=== PATIENT | female | born 1950 | race Caucasian/White ===

== ENCOUNTER → 2016-11-27 | Outpatient (CLI) | payer OTHER ==
[~2016-11-27] MED LIST: ALPR-138 PO; COUM2TAB PO; PRAV80 PO; SYNT25TA PO; VAGI10TA VA
[2016-11-27 10:55] LABS: INTERNATIONAL NORMALIZED RATIO 2.7 RATIO; PROTHROMBIN TIME - PATIENT 31.1 SEC (9.8-11.6)
== END ==
LOC: CLAB 10:25
PROVIDERS: ATTEND Family Medicine
DX: I67.9 Cerebrovascular disease, unspecified (principal)
CPT/HCPCS: 36415; 85610

== ENCOUNTER → 2016-12-26 | Outpatient (CLI) | payer OTHER ==
[2016-12-26 09:43] LABS: INTERNATIONAL NORMALIZED RATIO 2.8 RATIO; PROTHROMBIN TIME - PATIENT 32.3 SEC (9.8-11.6)
[2016-12-26 10:07] LABS: HDL CHOLESTEROL 82.2 MG/DL (40.0-60.0); INDIRECT BILIRUBIN 0.5 MG/DL (0.0-0.8); TOTAL BILIRUBIN ADULT 0.7 MG/DL (0.2-1.0)
== END ==
LOC: CLAB 09:14
PROVIDERS: ATTEND Family Medicine
DX: E78.2 Mixed hyperlipidemia (principal); I67.9 Cerebrovascular disease, unspecified; Z79.01 Long term (current) use of anticoagulants
CPT/HCPCS: 36415; 80061; 80076; 85610

== ENCOUNTER → 2017-01-30 | Outpatient (CLI) | payer OTHER ==
[2017-01-30 12:07] LABS: INTERNATIONAL NORMALIZED RATIO 1.8 RATIO; PROTHROMBIN TIME - PATIENT 20.6 SEC (9.8-11.6)
== END ==
LOC: CLAB 11:28
PROVIDERS: ATTEND Family Medicine
DX: I67.9 Cerebrovascular disease, unspecified (principal); Z79.01 Long term (current) use of anticoagulants
CPT/HCPCS: 36415; 85610

== ENCOUNTER → 2017-02-28 | Outpatient (CLI) | payer OTHER ==
[2017-02-28 09:05] LABS: AUTOMATED NEUTROPHIL # 2.1 TH/MM3 (1.8-7.7); BASOPHIL # 0.1 TH/MM3 (0-0.2); BASOPHIL % 1.3 % (0.0-2.0); EOSINOPHIL # 0.3 TH/MM3 (0-0.4); EOSINOPHIL % 6.7 % (0.0-4.0); HEMATOCRIT 40.9 % (35.0-46.0); HEMO FLAGS DIFF FINAL; LYMPH % 28.1 % (9.0-44.0); LYMPHOCYTE # 1.1 TH/MM3 (1.0-4.8); MEAN CELL VOLUME 89.1 FL (80.0-100.0); MEAN CORPUSCULAR HEMOGLOBIN 30.2 PG (27.0-34.0); MEAN CORPUSCULAR HGB CONC 33.9 % (32.0-36.0); MONO % 11.3 % (0.0-8.0); NEUT % 52.6 % (16.0-70.0); PLATELET COUNT 251 TH/MM3 (150-450); RED BLOOD COUNT 4.59 MIL/MM3 (4.00-5.30); RED CELL DISTRIBUTION WIDTH 12.8 % (11.6-17.2); WHITE BLOOD COUNT 4.1 TH/MM3 (4.0-11.0)
[2017-02-28 09:13] LABS: INTERNATIONAL NORMALIZED RATIO 2.7 RATIO; PROTHROMBIN TIME - PATIENT 31.1 SEC (9.8-11.6)
[2017-02-28 10:06] LABS: ALKALINE PHOSPHATASE 79 U/L (45-117); ALT (GPT) 26 U/L (10-53); ANION GAP 7 MEQ/L (5-15); AST (GOT) 22 U/L (15-37); BICARBONATE 29.2 MEQ/L (21.0-32.0); BLOOD UREA NITROGEN 13 MG/DL (7-18); CHLORIDE 105 MEQ/L (98-107); GLOMERULAR FILTRATION RATE 67 ML/MIN (>89); GLUCOSE,FASTING 89 MG/DL (74-99); HDL CHOLESTEROL 74.1 MG/DL (40.0-60.0); LDL CHOLESTEROL 81 MG/DL (0-99); POTASSIUM 4.2 MEQ/L (3.5-5.1); SODIUM (NA) 141 MEQ/L (136-145); TOTAL BILIRUBIN ADULT 0.6 MG/DL (0.2-1.0)
== END ==
LOC: CLAB 08:32
PROVIDERS: ATTEND Family Medicine
DX: E78.2 Mixed hyperlipidemia (principal); I67.9 Cerebrovascular disease, unspecified; Q21.1 Atrial septal defect; E03.8 Other specified hypothyroidism; Z79.01 Long term (current) use of anticoagulants
CPT/HCPCS: 36415; 80053; 80061; 84443; 85025; 85610

== ENCOUNTER → 2017-04-11 | Outpatient (CLI) | payer OTHER, MEDICARE ==
[2017-04-11 11:50] LABS: INTERNATIONAL NORMALIZED RATIO 2.9 RATIO
== END ==
LOC: CLAB 11:25
PROVIDERS: ATTEND Family Medicine
DX: I67.9 Cerebrovascular disease, unspecified (principal); Z79.01 Long term (current) use of anticoagulants
CPT/HCPCS: 36415; 85610

== ENCOUNTER → 2017-05-26 | Outpatient (CLI) | payer MEDICARE ==
[2017-05-26 11:05] LABS: INTERNATIONAL NORMALIZED RATIO 2.2 RATIO; PROTHROMBIN TIME - PATIENT 24.6 SEC (9.8-11.6)
== END ==
LOC: CLAB 10:21
PROVIDERS: ATTEND Family Medicine
DX: I67.9 Cerebrovascular disease, unspecified (principal); Z79.01 Long term (current) use of anticoagulants
CPT/HCPCS: 36415; 85610

== ENCOUNTER → 2017-07-08 | Outpatient (CLI) | payer MEDICARE ==
[2017-07-08 11:38] LABS: INTERNATIONAL NORMALIZED RATIO 2.9 RATIO
== END ==
LOC: CLAB 11:08
PROVIDERS: ATTEND Family Medicine
DX: I67.9 Cerebrovascular disease, unspecified (principal); Z79.01 Long term (current) use of anticoagulants
CPT/HCPCS: 36415; 85610

== ENCOUNTER → 2017-08-21 | Outpatient (CLI) | payer MEDICARE ==
[2017-08-21 11:37] LABS: INTERNATIONAL NORMALIZED RATIO 2.7 RATIO; PROTHROMBIN TIME - PATIENT 31.2 SEC (9.8-11.6)
== END ==
LOC: CLAB 10:45
PROVIDERS: ATTEND Family Medicine
DX: I67.9 Cerebrovascular disease, unspecified (principal); Z79.01 Long term (current) use of anticoagulants
CPT/HCPCS: 36415; 85610

== ENCOUNTER → 2017-09-12 | Outpatient (CLI) | payer MEDICARE ==
[2017-09-12 09:40] LABS: AUTOMATED NEUTROPHIL # 2.1 TH/MM3 (1.8-7.7); BASOPHIL % 0.9 % (0.0-2.0); EOSINOPHIL # 0.2 TH/MM3 (0-0.4); EOSINOPHIL % 3.7 % (0.0-4.0); HEMATOCRIT 41.8 % (35.0-46.0); HEMO FLAGS DIFF FINAL; LYMPH % 32.4 % (9.0-44.0); LYMPHOCYTE # 1.3 TH/MM3 (1.0-4.8); MEAN CELL VOLUME 90.7 FL (80.0-100.0); MEAN CORPUSCULAR HGB CONC 34.2 % (32.0-36.0); MONO % 12.1 % (0.0-8.0); NEUT % 50.9 % (16.0-70.0); PLATELET COUNT 269 TH/MM3 (150-450); RED BLOOD COUNT 4.61 MIL/MM3 (4.00-5.30); RED CELL DISTRIBUTION WIDTH 12.4 % (11.6-17.2); WHITE BLOOD COUNT 4.1 TH/MM3 (4.0-11.0)
[2017-09-12 10:10] LABS: ALT (GPT) 30 U/L (10-53); ANION GAP 6 MEQ/L (5-15); AST (GOT) 28 U/L (15-37); BICARBONATE 28.4 MEQ/L (21.0-32.0); BLOOD UREA NITROGEN 12 MG/DL (7-18); CHLORIDE 103 MEQ/L (98-107); GLOMERULAR FILTRATION RATE 74 ML/MIN (>89); GLUCOSE,FASTING 91 MG/DL (74-99); POTASSIUM 4.3 MEQ/L (3.5-5.1); SODIUM (NA) 137 MEQ/L (136-145)
[2017-09-12 10:19] LABS: ALKALINE PHOSPHATASE 79 U/L (45-117); HDL CHOLESTEROL 72.3 MG/DL (40.0-60.0); LDL CHOLESTEROL 79 MG/DL (0-99); TOTAL BILIRUBIN ADULT 0.6 MG/DL (0.2-1.0)
== END ==
LOC: CLAB 09:08
PROVIDERS: ATTEND Nurse Practitioner Family
DX: E03.8 Other specified hypothyroidism (principal); I67.9 Cerebrovascular disease, unspecified; F41.1 Generalized anxiety disorder; E78.2 Mixed hyperlipidemia
CPT/HCPCS: 36415; 80053; 80061; 84443; 85025

== ENCOUNTER → 2017-10-14 | Outpatient (CLI) | payer MEDICARE ==
[2017-10-14 11:49] LABS: INTERNATIONAL NORMALIZED RATIO 3.2 RATIO; PROTHROMBIN TIME - PATIENT 32.1 SEC (9.8-11.6)
== END ==
LOC: CLAB 11:17
PROVIDERS: ATTEND Family Medicine
DX: I67.9 Cerebrovascular disease, unspecified (principal); Z79.01 Long term (current) use of anticoagulants
CPT/HCPCS: 36415; 85610

== ENCOUNTER → 2017-11-18 | Outpatient (CLI) | payer MEDICARE ==
[2017-11-18 11:26] LABS: INTERNATIONAL NORMALIZED RATIO 2.2 RATIO; PROTHROMBIN TIME - PATIENT 22.7 SEC (9.8-11.6)
== END ==
LOC: CLAB 10:57
PROVIDERS: ATTEND Family Medicine
DX: I67.9 Cerebrovascular disease, unspecified (principal); Z79.01 Long term (current) use of anticoagulants
CPT/HCPCS: 36415; 85610

== ENCOUNTER → 2018-01-05 | Outpatient (CLI) | payer MEDICARE ==
[2018-01-05 13:05] LABS: INTERNATIONAL NORMALIZED RATIO 2.3 RATIO; PROTHROMBIN TIME - PATIENT 23.3 SEC (9.8-11.6)
== END ==
LOC: CLAB 12:34
PROVIDERS: ATTEND Family Medicine
DX: I63.9 Cerebral infarction, unspecified (principal)
CPT/HCPCS: 36415; 85610

== ENCOUNTER 2018-01-23 19:31 | Emergency (ER) | payer MEDICARE ==
[~2018-01-23] VITALS: Ht 165.1 cm; Wt 78.9 kg
[2018-01-23] MEDS ORDERED: IOHEXOL 350 MG/ML 10 ML VIAL (for RAD DIAG) IVCONTRAST ONE (19:32)
[2018-01-23 19:49] VITALS: BP 173/100; PULSE 102; RESP 17; TEMP 97.7; O2SAT 94
[2018-01-23] MEDS ORDERED: ALPR.25 PO (21:36)
[2018-01-23] MEDS ORDERED: SYNT25TA PO (21:36)
[2018-01-23] MEDS ORDERED: MULT1TAB46 PO (21:36)
[2018-01-23] MEDS ORDERED: VITATAB56 PO (21:36)
[2018-01-23] MEDS ORDERED: CARD180C5 PO (21:36)
[2018-01-23] MEDS ORDERED: VITATAB11 (21:36)
[2018-01-23] MEDS ORDERED: COUM2TAB PO (21:36)
[2018-01-23] MEDS ORDERED: ESTR42.5V VAGINAL (21:36)
[2018-01-23] MEDS ORDERED: CALC1TAB87 PO (21:36)
[2018-01-23] MEDS ORDERED: MAGN100T2 PO (21:36)
[2018-01-23] MEDS ORDERED: ATOR40TA16 PO (21:36)
[2018-01-23] MEDS ORDERED: VITA250T3 PO (21:36)
[2018-01-23 22:29] LABS: AUTOMATED NEUTROPHIL # 7.2 TH/MM3 (1.8-7.7); BASOPHIL # 0.1 TH/MM3 (0-0.2); BASOPHIL % 0.9 % (0.0-2.0); EOSINOPHIL # 0.2 TH/MM3 (0-0.4); EOSINOPHIL % 1.8 % (0.0-4.0); HEMATOCRIT 44.3 % (35.0-46.0); HEMOGLOBIN 14.4 GM/DL (11.6-15.3); LYMPH % 15.5 % (9.0-44.0); LYMPHOCYTE # 1.5 TH/MM3 (1.0-4.8); MEAN CELL VOLUME 88.5 FL (80.0-100.0); MEAN CORPUSCULAR HEMOGLOBIN 28.9 PG (27.0-34.0); MEAN CORPUSCULAR HGB CONC 32.6 % (32.0-36.0); MEAN PLATELET VOLUME 7.4 FL (7.0-11.0); MONO % 9.6 % (0.0-8.0); MONOCYTE # 0.9 TH/MM3 (0-0.9); NEUT % 72.2 % (16.0-70.0); PLATELET COUNT 288 TH/MM3 (150-450); RED BLOOD COUNT 5.01 MIL/MM3 (4.00-5.30); RED CELL DISTRIBUTION WIDTH 12.2 % (11.6-17.2); WHITE BLOOD COUNT 9.9 TH/MM3 (4.0-11.0)
[2018-01-23 22:41] LABS: CALCIUM 8.8 MG/DL (8.5-10.1)
[2018-01-23 22:45] LABS: CREATININE 0.92 MG/DL (0.50-1.00)
--- NOTE | 2018-01-23 22:48 | RADRPT ---
EXAM DATE/TIME: 01/23/2018 22:02 [facility] COMPARISON: No previous studies available for comparison. INDICATIONS : Cough. MEDICAL HISTORY : None. SURGICAL HISTORY : None. ENCOUNTER: Initial ACUITY: 1 day PAIN SCORE: 0/10 LOCATION: Bilateral chest FINDINGS: A single view of the chest demonstrates the lungs to be symmetrically aerated without evidence of mas s, infiltrate or effusion. The cardiomediastinal contours are unremarkable except tortuous aorta. O sseous structures are intact. CONCLUSION: 1. No active disease. Tortuous aorta. Micheal Michael MD on January 23, 2018 at 22:45 Board Certified Radiologist. This report was verified electronically.
[2018-01-23 22:53] LABS: INTERNATIONAL NORMALIZED RATIO 2.9 RATIO; PROTHROMBIN TIME - PATIENT 29.1 SEC (9.8-11.6)
--- NOTE | 2018-01-24 00:11 | RADRPT ---
EXAM DATE/TIME: 01/23/2018 23:29 [facility] COMPARISON: No previous studies available for comparison. INDICATIONS : Sore Throat. IV CONTRAST: 70 cc Omnipaque 350 (iohexol) IV RADIATION DOSE: 13.20 CTDIvol (mGy) MEDICAL HISTORY : Cerebrovascular disease. Hypertension. SURGICAL HISTORY : None. ENCOUNTER: Initial ACUITY: 1 day PAIN SCALE: 10/10 LOCATION: throat TECHNIQUE: Volumetric scanning of the neck was performed. Using automated exposure control and adjustment of th e mA and/or kV according to patient size, radiation dose was kept as low as reasonably achievable to obtain optimal diagnostic quality images. DICOM format image data is available electronically for r eview and comparison. FINDINGS: NASOPHARYNX: The nasopharyngeal airway has a normal configuration. No mucosal thickening or mass is seen. OROPHARYNX: The intrinsic muscles of the tongue are symmetric. The tonsillar pillars are intact. The prevertebr al soft tissues are not thickened. LARYNX: The epiglottis is intact and normal in size. The beronica-epiglottic folds are diffusely enlarged and maxim atous in appearance. PARAPHARYNGEAL: The parapharyngeal space is intact. SALIVARY GLANDS: The parotid and submandibular glands are intact. LYMPH NODES: No enlarged or necrotic-appearing nodes. THYROID: Homogeneous enhancement without evidence of nodule. BONES: Unremarkable. CONCLUSION: 1. The epiglottis is unremarkable in appearance. The shawn-epiglottic folds are abnormal in appearance with enlargement and edema. 2. The airway is not compromised . 3. No focal mass or adenopathy. Robert Angel MD on January 24, 2018 at 0:00 Board Certified Radiologist. This report was verified electronically.
[2018-01-24 00:22] VITALS: BP 149/85; PULSE 97; RESP 18; TEMP 98.6; O2SAT 95
[2018-01-24] MEDS ORDERED: PERC5TAB12 PO (00:27)
[2018-01-24] MEDS ORDERED: ZOFR4TAB3 SL (00:27)
[2018-01-24] MEDS ORDERED: ONDANSETRON HCL 4 MG/2 ML VIAL IV PUSH ONE (00:30)
[2018-01-24] MEDS ORDERED: oxyCODONE/ACETAMINOPHEN 5 MG/325 MG TAB PO ONE (00:30)
--- NOTE | 2018-01-24 00:34 | PD ---
HPI Chief Complaint: ENT Complaint Time Seen by Provider: 21:58 Travel History International Travel<30 days: No Contact w/Intl Traveler<30days: No Traveled to known affect area: No History of Present Illness HPI 67-year-old female presents to the emergency department for complaint of severe throat pain with swallowing no fever no chills no nausea no vomiting no shortness of breath no wheezing. Patient states pain is such that it is interfering with her ability to swallow. Patient is on Coumadin therapy for history of history of CVA felt to be secondary to ventricular septal defect which had is undergone repair and loop recorder that showed brief episodes of atrial flutter and atrial fibrillation. Patient has had no chest pain no palpitations no shortness of breath no wheezing no near-syncope or syncope. Patient rates pain 10/10 in intensity. Patient cannot take nonsteroidal anti- inflammatory medications due to Coumadin therapy. Patient keeps her INR therapeutic range between 2 and 3. PFSH Past Medical History Narrative Medical Anxiety hypertension dyslipidemia CVA VSD status post repair atrial fib atrial flutter; occasional alcohol; nursing notes Anxiety: Yes Heart Rhythm Problems: Yes (ATRIAL SEPTAL DEFECT) Cancer: No Cardiovascular Problems: No High Cholesterol: Yes Cerebrovascular Accident: Yes (DEC 2007) Diminished Hearing: No Endocrine: No Genitourinary: Yes (KIDNEY PAIN) Hepatitis: Yes (1971) Hypertension: Yes Immune Disorder: No Musculoskeletal: No Neurologic: No Psychiatric: No Reproductive: No Respiratory: No Immunizations Current: Yes Thyroid Disease: Yes (HYPOTHYROID) Tetanus Vaccination: < 5 Years Influenza Vaccination: Yes ?: Not Menopausal: Yes Past Surgical History Abdominal Surgery: No AICD: No Arteriovenous Shunt: No Cardiac Surgery: Yes (ATRIAL SEPTAL DEFECT REPAIR) Ear Surgery: No Endocrine Surgery: No Eye Surgery: No Genitourinary Surgery: No Gynecologic Surgery: No Insulin Pump: No Joint Replacement: No Oral Surgery: No Pacemaker: No Thoracic Surgery: No Social History Alcohol Use: Yes (RED WINE 1 TO 2 PER WEEK, LAST 12/04/07) Tobacco Use: Yes Substance Use: No Allergies-Medications (Allergen,Severity, Reaction): Coded Allergies: No Known Allergies (Verified Adverse Reaction, Unknown, 01/23/18) Reported Meds & Prescriptions Reported Meds & Active Scripts Active Reported Cardizem CD 24 HR (Diltiazem CD 24 HR) 180 Mg Caper 180 Mg PO DAILY Estrace Vaginal (Estradiol) 0.01% Cream 1 Appl VAGINAL 2X WEEKLY Magnesium Citrate 100 Mg Tab 250 Mg PO DAILY PRN Vitamin B Complex (B-Complex Vitamins) 1 Tab DAILY Calcium 600 with Vitamin D (Calcium Carbonate-Cholecalciferol) 600-400 mg-Unit Tab 1 Tab PO DAILY Vitamin D-400 (Cholecalciferol) 400 Unit Tab 400 Units PO DAILY Vitamin C (Ascorbic Acid) 250 Mg Tab 500 Mg PO BID Multi Vitamin Daily (Multiple Vitamin) 1 Tab Tab 1 Tab PO DAILY Xanax (Alprazolam) 0.25 Mg Tab 0.25 Mg PO HS PRN Atorvastatin (Atorvastatin Calcium) 40 Mg Tab 40 Mg PO HS Synthroid (Levothyroxine Sodium) 25 Mcg Tab 25 Mcg PO DAILY Coumadin (Warfarin) 2 Mg Tab 2 Mg PO DAILY Review of Systems Except as stated in HPI: all other systems reviewed are Neg Physical Exam Narrative GENERAL: Well-developed well-nourished female no acute distress no respiratory distress no stridor or hoarseness. SKIN: Warm and dry. HEAD: Normocephalic. EYES: No scleral icterus. No injection or drainage. ENT: Mucous membranes moist posterior pharynx without erythema edema exudative change and is patent. NECK: Supple, trachea midline. No JVD or lymphadenopathy. Supple no palpable mass no lymphadenopathy. Trachea midline. CARDIOVASCULAR: Regular rate and rhythm without murmurs, gallops, or rubs. RESPIRATORY: Breath sounds equal bilaterally. No accessory muscle use. GASTROINTESTINAL: Abdomen soft, non-tender, nondistended. MUSCULOSKELETAL: No cyanosis, or edema. BACK: Nontender without obvious deformity. No CVA tenderness. Data Data Last Documented VS Vital Signs Date Time Temp Pulse Resp B/P (MAP) Pulse Ox O2 Delivery O2 Flow Rate FiO2 01/24/18 00:22 98.6 97 18 149/85 (106) 95 Orders Orders Group A Rapid Strep Screen (01/23/18 21:58) Complete Blood Count With Diff (01/23/18 21:58) Prothrombin Time / Inr (Pt) (01/23/18 21:58) Basic Metabolic Panel (Bmp) (01/23/18 21:58) Chest, Single Ap (01/23/18 ) Lactic Acid (01/23/18 21:58) Strep Culture (Group A) (01/23/18 22:20) Ct Soft Tiss Neck W Iv Cont (01/23/18 ) Iohexol 350 Inj (Omnipaque 350 Inj) (01/23/18 19:32) Ondansetron Inj (Zofran Inj) (01/24/18 00:30) Oxycodone-Acetamin 5-325 Mg (Percocet (01/24/18 00:30) Labs Laboratory Tests Test 01/23/18 22:20 White Blood Count 9.9 TH/MM3 Red Blood Count 5.01 MIL/MM3 Hemoglobin 14.4 GM/DL Hematocrit 44.3 % Mean Corpuscular Volume 88.5 FL Mean Corpuscular Hemoglobin 28.9 PG Mean Corpuscular Hemoglobin Concent 32.6 % Red Cell Distribution Width 12.2 % Platelet Count 288 TH/MM3 Mean Platelet Volume 7.4 FL Neutrophils (%) (Auto) 72.2 % Lymphocytes (%) (Auto) 15.5 % Monocytes (%) (Auto) 9.6 % Eosinophils (%) (Auto) 1.8 % Basophils (%) (Auto) 0.9 % Neutrophils # (Auto) 7.2 TH/MM3 Lymphocytes # (Auto) 1.5 TH/MM3 Monocytes # (Auto) 0.9 TH/MM3 Eosinophils # (Auto) 0.2 TH/MM3 Basophils # (Auto) 0.1 TH/MM3 CBC Comment DIFF FINAL Differential Comment Prothrombin Time 29.1 SEC Prothromb Time International Ratio 2.9 RATIO Blood Urea Nitrogen 16 MG/DL Creatinine 0.92 MG/DL Random Glucose 104 MG/DL Calcium Level 8.8 MG/DL Sodium Level 138 MEQ/L Potassium Level 4.5 MEQ/L Chloride Level 104 MEQ/L Carbon Dioxide Level 27.0 MEQ/L Anion Gap 7 MEQ/L Estimat Glomerular Filtration Rate 61 ML/MIN Lactic Acid Level 1.0 mmol/L [facility] Medical Decision Making Medical Screen Exam Complete: Yes Emergency Medical Condition: Yes Medical Record Reviewed: Yes Differential Diagnosis Laryngitis viral syndrome strep pharyngitis also to consider retropharyngeal abscess unlikely epiglottitis Narrative Course IV access obtained specimens collections of resulting CBC with automated differential within normal limits lactic acid 1.1, not elevated INR is therapeutic at 2.9 rapid strep test is negative; CT soft tissue neck ordered with IV contrast Imaging study per reading radiologist reveals some beronica-epiglottic fold edema -- airways patent. Patient's case and imaging studies discussed with on-call ENT concurs no intervention necessary other than symptomatic. Patient complains of severe 10/10 pain is aware that imaging study is consistent with inflammatory response and symptoms may get slightly worse but symptomatic intervention such as coolness vaporizer is staying well-hydrated septic spray lozenges and once or gargles should be sufficient however will provide prescription for a few tablets of Percocet 5/325 and as needed Zofran for medication induced nausea vomiting. Diagnosis Primary Impression: Laryngitis acute, spasmodic Referrals: Primary Care Physician call for appointment Patient Instructions: General Instructions Additional Instructions: Increase fluid hydration May use warm salt water gargles and lozenges and Chloraseptic spray for symptomatic relief For more severe pain may take 1/2-1 tablet of Percocet as needed for pain greater than 6/10 intensity Use coolness vaporizer at bedside May take Zofran as prescribed as needed for nausea and/or vomiting Continue current medications as chronically prescribed Follow-up with your primary care provider call office on Friday Med/Other Pt SpecificInfo: Prescription(s) given Scripts Oxycodone-Acetaminophen (Percocet) 5-325 mg Tab 1 TAB PO Q6H Y for PAIN, #6 TAB 0 Refills Prov: Ree Watts MD 01/24/18 Ondansetron Odt (Zofran Odt) 4 Mg Tab 4 MG SL Q6HR Y for Nausea/Vomiting, #10 TAB 0 Refills Prov: Ree Watts MD 01/24/18 Disposition: 01 DISCHARGE HOME Condition: Stable Ree Watts MD Jan 24, 2018 00:34
[2018-01-24 01:10] VITALS: RESP 18
== END 2018-01-24 01:11 | disposition home or self-care (01) ==
LOC: PHED 19:31 → PHEFT 01-24 01:11
DX: J04.0 Acute laryngitis (principal); I10 Essential (primary) hypertension; E03.9 Hypothyroidism, unspecified; E78.5 Hyperlipidemia, unspecified; Z72.0 Tobacco use; Z79.01 Long term (current) use of anticoagulants; Z86.79 Personal history of other diseases of the circulatory system; Z86.73 Personal history of transient ischemic attack (TIA), and cerebral infarction without residual deficits
CPT/HCPCS: 70491; 71045; 80048; 83605; 85025; 85610; 87081; 87880; 96374; 99285; J2405; Q9967

== ENCOUNTER → 2018-03-13 | Outpatient (CLI) | payer MEDICARE ==
[~2018-03-13] MED LIST changes: -ALPR-138 PO; +ALPR.25 PO; +ATOR40TA16 PO; +CALC1TAB87 PO; +CARD180C5 PO; +ESTR42.5V VAGINAL; +MAGN100T2 PO; +MULT1TAB46 PO; +PERC5TAB12 PO; -PRAV80 PO; -VAGI10TA VA; +VITA250T3 PO; +VITATAB11; +VITATAB56 PO; +ZOFR4TAB3 SL
[2018-03-13 10:40] LABS: AUTOMATED NEUTROPHIL # 2.6 TH/MM3 (1.8-7.7); BASOPHIL % 0.6 % (0.0-2.0); EOSINOPHIL # 0.1 TH/MM3 (0-0.4); EOSINOPHIL % 2.8 % (0.0-4.0); HEMATOCRIT 39.6 % (35.0-46.0); HEMOGLOBIN 13.7 GM/DL (11.6-15.3); LYMPH % 29.4 % (9.0-44.0); LYMPHOCYTE # 1.4 TH/MM3 (1.0-4.8); MEAN CELL VOLUME 89.1 FL (80.0-100.0); MEAN CORPUSCULAR HEMOGLOBIN 30.8 PG (27.0-34.0); MEAN CORPUSCULAR HGB CONC 34.5 % (32.0-36.0); MONO % 10.7 % (0.0-8.0); MONOCYTE # 0.5 TH/MM3 (0-0.9); NEUT % 56.5 % (16.0-70.0); PLATELET COUNT 282 TH/MM3 (150-450); RED BLOOD COUNT 4.45 MIL/MM3 (4.00-5.30); WHITE BLOOD COUNT 4.7 TH/MM3 (4.0-11.0)
[2018-03-13 10:55] LABS: INTERNATIONAL NORMALIZED RATIO 3.4 RATIO; PROTHROMBIN TIME - PATIENT 34.1 SEC (9.8-11.6)
[2018-03-13 11:16] LABS: CHOLESTEROL 166 MG/DL (120-200); GLUCOSE,FASTING 86 MG/DL (74-99)
[2018-03-13 11:31] LABS: ALKALINE PHOSPHATASE 75 U/L (45-117); ALT (GPT) 25 U/L (10-53); HDL CHOLESTEROL 69.1 MG/DL (40.0-60.0); LDL CHOLESTEROL 80 MG/DL (0-99); TOTAL BILIRUBIN ADULT 0.7 MG/DL (0.2-1.0); TOTAL PROTEIN 7.1 GM/DL (6.4-8.2); TRIGLYCERIDES 85 MG/DL (42-150)
[2018-03-13 11:37] LABS: ALBUMIN 3.9 GM/DL (3.4-5.0); AST (GOT) 27 U/L (15-37); BICARBONATE 27.2 MEQ/L (21.0-32.0); BLOOD UREA NITROGEN 13 MG/DL (7-18); CALCIUM 8.7 MG/DL (8.5-10.1); CHLORIDE 106 MEQ/L (98-107); CREATININE 0.78 MG/DL (0.50-1.00); GLOMERULAR FILTRATION RATE 73 ML/MIN (>89); SODIUM (NA) 140 MEQ/L (136-145)
== END ==
LOC: CLAB 09:54
PROVIDERS: ATTEND Family Medicine
DX: E78.2 Mixed hyperlipidemia (principal); I63.9 Cerebral infarction, unspecified; Q21.0 Ventricular septal defect; Q21.1 Atrial septal defect; E03.8 Other specified hypothyroidism
CPT/HCPCS: 36415; 80053; 80061; 84443; 85025; 85610

== ENCOUNTER → 2018-04-13 | Outpatient (CLI) | payer MEDICARE ==
[2018-04-13 11:35] LABS: INTERNATIONAL NORMALIZED RATIO 3.1 RATIO; PROTHROMBIN TIME - PATIENT 30.9 SEC (9.8-11.6)
== END ==
LOC: CLAB 11:04
PROVIDERS: ATTEND Family Medicine
DX: I63.9 Cerebral infarction, unspecified (principal)
CPT/HCPCS: 36415; 85610